=== PATIENT | male | born 1960 ===

== ENCOUNTER 2018-06-07 12:48 | Emergency (ER) | payer MEDICAID, OTHER ==
[~2018-06-07] VITALS: Ht 172.7 cm; Wt 70.8 kg
[2018-06-07] MEDS ORDERED: LIDOCAINE-MPF 1%, 5ML INFIL ONE (14:00)
[2018-06-07] MEDS ORDERED: LIDOCAINE-MPF 1%, 5ML ONE ×2 (14:08→14:12)
[2018-06-07 15:10] VITALS: BP 143/82
== END 2018-06-07 15:13 | disposition home or self-care (01) ==
LOC: ED 14:45
DX: L03.114 Cellulitis of left upper limb (principal); L02.414 Cutaneous abscess of left upper limb; Z91.14 Patient's other noncompliance with medication regimen; Z90.89 Acquired absence of other organs
CPT/HCPCS: 10060; 99283

== ENCOUNTER 2018-08-30 13:59 | Emergency (ER) | payer MEDICAID, OTHER ==
[~2018-08-30] VITALS: Ht 172.7 cm; Wt 68.8 kg
[2018-08-30 14:08] VITALS: BP 164/90
[2018-08-30] MEDS ORDERED: ACETAMINOPHEN 325 MG TABLET PO ONE (14:30)
[2018-08-30] MEDS ORDERED: ACETAMINOPHEN 325 MG TABLET ONE (14:41)
== END 2018-08-30 17:00 | disposition home or self-care (01) ==
LOC: ED 16:05
DX: S62.101A Fracture of unspecified carpal bone, right wrist, initial encounter for closed fracture (principal); S92.424A Nondisplaced fracture of distal phalanx of right great toe, initial encounter for closed fracture; S09.8XXA Other specified injuries of head, initial encounter; V98.8XXA Other specified transport accidents, initial encounter; F15.10 Other stimulant abuse, uncomplicated; F17.200 Nicotine dependence, unspecified, uncomplicated; Z90.89 Acquired absence of other organs; Y93.89 Activity, other specified; Y92.89 Other specified places as the place of occurrence of the external cause; Y99.8 Other external cause status
CPT/HCPCS: 29125; 70450; 72190; 99284

== ENCOUNTER 2018-09-25 16:35 | Emergency (ER) | payer MEDICAID, OTHER ==
[~2018-09-25] VITALS: Ht 172.7 cm; Wt 68.7 kg
[2018-09-25 16:37] VITALS: BP 125/77
[2018-09-25] MEDS ORDERED: KETOROLAC 30 MG/1 ML ONE (16:55)
[2018-09-25] MEDS ORDERED: KETOROLAC 30 MG/1 ML IM ONE (17:00)
== END 2018-09-25 18:04 | disposition home or self-care (01) ==
LOC: ED 17:26
DX: M54.41 Lumbago with sciatica, right side (principal); Z90.49 Acquired absence of other specified parts of digestive tract
CPT/HCPCS: 72110; 96372; 99283; J1885

== ENCOUNTER 2019-12-29 15:58 | Emergency (ER) | payer MEDICAID, OTHER ==
[~2019-12-29] VITALS: Ht 172.7 cm; Wt 73.2 kg
[2019-12-29 16:12] VITALS: BP 177/98
[2019-12-29 17:02] LABS: BASOPHILS # (AUTO) 0.02 x10^3/uL (0-0.1); BASOPHILS % (AUTO) 0 % (0-1); EOSINOPHILS # (AUTO) 0.18 x10^3/uL (0-0.4); EOSINOPHILS % (AUTO) 2 % (1-7); LYMPHOCYTES # (AUTO) 1.44 x10^3/uL (1-3.4); LYMPHOCYTES % (AUTO) 20 % (22-44); MD NO; MEAN CORPUSCULAR VOLUME 94.1 fL (81-97); MEAN PLATELET VOLUME 7.2 fL (7.4-10.4); MONOCYTES # (AUTO) 0.47 x10^3/uL (0.2-0.8); MONOCYTES % (AUTO) 7 % (2-9); NEUTROPHILS # (AUTO) 5.12 x10^3/uL (1.8-6.8); NEUTROPHILS % (AUTO) 71 % (42-75); PLATELET COUNT 303 x10^3/uL (130-400); RED BLOOD COUNT 3.94 x10^6/uL (4.38-5.82); RED CELL DISTRIBUTION WIDTH 13.4 % (9.4-14.8)
[2019-12-29 17:10] LABS: ALBUMIN 3.4 g/dL (3.4-5.0); ANION GAP 8 mmol/L (5-15); CALCIUM 8.4 mg/dL (8.5-10.1); CHLORIDE 106 mmol/L (98-107); CREATININE 1.25 mg/dL (0.7-1.3)
[2019-12-29] MEDS ORDERED: LIDOCAINE-MPF 1%, 5ML INFIL ONE (18:00)
[2019-12-29] MEDS ORDERED: LIDOCAINE-MPF 1%, 5ML ONE (18:12)
== END 2019-12-29 19:24 | disposition home or self-care (01) ==
LOC: ED 16:58
DX: L02.512 Cutaneous abscess of left hand (principal)
CPT/HCPCS: 26010; 26011; 36415; 80048; 82040; 85025; 99284